=== PATIENT | male | born 1995 ===

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

== ENCOUNTER → 2017-05-12 | Outpatient (CLI) | payer BC, OTHER ==
--- NOTE | 2017-05-12 12:46 | DIAGNOSTIC IMAGING REPORT ---
LEFT KNEE INCLUDING BILATERAL STANDING AP VIEWS (4 VIEWS) CLINICAL HISTORY: LEFT KNEE PAIN COMPARISON: 08/01/2016 DISCUSSION: Bilateral standing AP views reveal mild bilateral osteoarthritic changes similar to the preceding examination. No acute fractures are visualized. There are no erosive or destructive changes. There is no radiographic evidence of a joint effusion. IMPRESSION: Mild osteoarthritic change. No acute fractures. Electronically signed by: Jose Hinson M.D. 05/12/2017 12:45 PM Dictated Date/Time: 05/12/2017 12:44 PM
--- NOTE | 2017-05-12 13:43 | DIAGNOSTIC IMAGING REPORT ---
MRI LEFT KNEE NO CONTRAST CLINICAL HISTORY: Left knee pain COMPARISON STUDY: 05/12/2017 conventional radiographic study FINDINGS: Imaging was performed the sagittal, coronal, and axial planes. There are no areas of marrow replacement to indicate occult fracture or bone bruise. The quadriceps and patellar tendons appear intact. The medial and lateral collateral ligaments appear intact. The anterior posterior cruciate ligaments appear intact. There are small popliteal cyst present. There is a horizontal tear involving the posterior horn of the medial meniscus. There is a possible radial tear of the lateral meniscus. IMPRESSION: 1. No evidence of cruciate or collateral ligament disruption 2. Horizontal tear involving the posterior horn of the medial meniscus 3. Possible radial tear of the lateral meniscus 4. Small popliteal cyst Electronically signed by: Jose Hinson M.D. 05/12/2017 1:42 PM Dictated Date/Time: 05/12/2017 1:35 PM
== END | disposition home or self-care (01) ==
LOC: C.MRI 12:11
PROVIDERS: ATTEND Orthopaedic Surgery
DX: S83.242A Other tear of medial meniscus, current injury, left knee, initial encounter (principal); X58.XXXA Exposure to other specified factors, initial encounter; M71.22 Synovial cyst of popliteal space [Baker], left knee